=== PATIENT | female | born 1990 | race Two or more races ===

== ENCOUNTER → 2024-03-23 | Outpatient (CLI) | payer MEDICAID ==
[~2024-03-23] MED LIST: PREN-96 PO
[2024-03-23 16:55] LABS: Basophils # (auto) 0 10 ^3/uL (0-0.2); Basophils % (auto) 0.4 % (0.0-2.0); Eosinophils # (auto) 0.1 10 ^3/uL (0-0.8); Eosinophils % (auto) 1.3 % (0.0-7.0); Hematocrit 36.3 % (36.0-46.0); Hemoglobin 12.5 g/dL (12.2-16.2); Lymphocytes # (auto) 2.3 10 ^3/uL (0.4-5.4); Lymphocytes % (auto) 24.3 % (10.0-50.0); Mean Corpuscular Hemoglobin 30.6 pg (28.0-32.0); Mean Corpuscular Hgb Conc. 34.4 g/dL (32.0-36.0); Monocytes # (auto) 0.4 10 ^3/uL (0-1.3); Neutrophils # (auto) 6.7 10 ^3/uL (1.6-8.6); Nucleated Red Blood Cells % 0.1 %; Platelet Count (auto) 292 10^3/uL (140-450); Red Blood Cells 4.08 10^6/uL (4.0-5.20); Red Cell Distribution Width 13.3 % (11.8-14.3); White Blood Cell 9.6 10^3/uL (4.4-10.8)
[2024-03-23 17:17] LABS: Amphetamine Screen, Urine Neg (NEGATIVE); Barbiturate Scree,Urine Neg (NEGATIVE)
[2024-03-23 17:19] LABS: Benzodiazephine Screen, Urine Neg (NEGATIVE); Cannabinoid Screen, Urine Neg (NEGATIVE); Cocaine Screen, Urine Neg (NEGATIVE); Opiate Scree,Urine Neg (NEGATIVE); Phencyclidine Screen, Urine Neg (NEGATIVE)
[2024-03-23 17:20] LABS: Cholesterol 169 mg/dL (< 200); Triglycerides 89 mg/dL (< 150)
[2024-03-23 17:21] LABS: LDL Cholesterol 97 mg/dL (< 100)
[2024-03-23 17:22] LABS: HDL Cholesterol 65 mg/dL (40-59)
[2024-03-23 17:23] LABS: Thyroid Stimulating Hormone 0.59 uIU/mL (0.55-4.78)
[2024-03-23 17:31] LABS: Beta HCG, Quantitative 97637.3 mIU/mL (1.5-4.2)
[2024-03-24 07:06] LABS: RPR Non Reactive (Non Reactive)
[2024-03-24 18:07] LABS: Chlamydia Trachomatis, NAA Negative (Negative); Neisseria gonorrhoeae, NAA Negative (Negative)
[2024-03-25 11:08] LABS: QuantiFERON-TB Gold Plus Negative (Negative)
== END | disposition home or self-care (01) ==
LOC: LAB 16:13
PROVIDERS: ATTEND Obstetrics & Gynecology
DX: Z11.3 Encounter for screening for infections with a predominantly sexual mode of transmission (principal); N39.0 Urinary tract infection, site not specified
CPT/HCPCS: 36415; 80061; 80307; 83036; 84439; 84443; 84702; 85025; 86592; 86703; 86765; 86787; 86850; 86900; 86901; 87086; 87340; 87902

== ENCOUNTER → 2024-08-11 | Outpatient (CLI) | payer MEDICAID ==
[2024-08-11 10:29] LABS: Basophils # (auto) 0 10 ^3/uL (0-0.2); Basophils % (auto) 0.2 % (0.0-2.0); Eosinophils # (auto) 0.1 10 ^3/uL (0-0.8); Eosinophils % (auto) 1.4 % (0.0-7.0); Hematocrit 34.2 % (36.0-46.0); Hemoglobin 11.3 g/dL (12.2-16.2); Lymphocytes % (auto) 12.6 % (10.0-50.0); Mean Corpuscular Hemoglobin 28.7 pg (28.0-32.0); Mean Corpuscular Hgb Conc. 33.2 g/dL (32.0-36.0); Mean Corpuscular Volume 86.3 fL (80.0-100.0); Monocytes # (auto) 0.3 10 ^3/uL (0-1.3); Monocytes % (auto) 4.3 % (0.0-12.0); Neutrophils # (auto) 6.3 10 ^3/uL (1.6-8.6); Neutrophils % (auto) 81.5 % (37.0-80.0); Platelet Count (auto) 265 10^3/uL (140-450); Red Blood Cells 3.96 10^6/uL (4.0-5.20); Red Cell Distribution Width 13.9 % (11.8-14.3); White Blood Cell 7.7 10^3/uL (4.4-10.8)
[2024-08-11 11:04] LABS: Alanine Aminotransferase 10 U/L (7-40); Albumin 4.3 g/dL (3.2-4.8); Alkaline Phosphatase 115 U/L (46-116); Anion Gap 8 (5-15); Aspartate Aminotransferase 13 U/L (13-40); BUN/Creatinine Ratio 11.1 (10.0-20.0); Bilirubin, Total 0.3 mg/dL (0.2-1.0); Calcium 9.8 mg/dL (8.7-10.4); Carbon Dioxide 25 mmol/L (20-31); Chloride 104 mmol/L (98-107); Glucose 88 mg/dL (74-106); Potassium 4.2 mmol/L (3.5-5.1); Sodium 137 mmol/L (136-145); Total Protein 7.3 g/dL (5.7-8.2)
[2024-08-11 11:13] LABS: Blood Urea Nitrogen 6 mg/dL (9-23)
[2024-08-12 07:07] LABS: RPR Non Reactive (Non Reactive)
[2024-08-12 18:06] LABS: Chlamydia Trachomatis, NAA Negative (Negative); Neisseria gonorrhoeae, NAA Negative (Negative)
== END | disposition home or self-care (01) ==
LOC: LAB 10:02
PROVIDERS: ATTEND Obstetrics & Gynecology
DX: Z34.80 Encounter for supervision of other normal pregnancy, unspecified trimester (principal)
CPT/HCPCS: 36415; 80053; 82951; 83036; 85025; 86592; 86850; 86900; 86901

== ENCOUNTER 2024-09-06 08:43 | Observation (INO) | payer MEDICAID ==
--- NOTE | 2024-09-06 09:38 | DVH ---
BIOPHYSICAL PROFILE HISTORY: GDMA1 TECHNIQUE: Multiple transabdominal real-time grayscale sonographic images through the gravid uterus of the fetus with duplex Doppler color flow and M-mode spectral analysis FINDINGS: BIOPHYSICAL PROFILE: breathing score: 2 movement score: 2 tone score: 2 Quantitative LUIS score: 2 (LUIS: 12.8 Cm.) Total score: 8 The cervix not well visualized. Single live fetus in cephalic presentation. heart rate 149 beats per minute. Posterior placenta without previa or abruption IMPRESSION: Biophysical profile score: 8
--- NOTE | 2024-09-06 12:25 | DVHDS2 ---
Physician Discharge Progress N Final Diagnosis: GDMA1 Secondary Diagnosis: Encounter for antepartum surveillance Operations or Procedures: Operations or Procedures NST/BPP/LUIS Condition on Discharge: Stable Disposition: Home Discharge Instructions: Diet: Consistent carbohydrate Activity: No Restrictions, As Tolerated Follow Up/Referral: [facility] on Friday[facility] at 9:00 am for NST/BPP Medications: N/A Follow Up Care: Discharge Statement: "Patient was advised to return to the ER or call 911 if any headaches, dizziness, shortness of breath, chest pain, abdominal pain, bleeding, fevers, or worsening of medical condition. Patient was counseled about treatment plan, medications, possible side effects, patientverbalized understanding. All questions were answered to the best of my ability. This discharge took greater then 30 minutes in planning, reviewing documentation, counseling the patient, and discussing with other team members." Visit Coding OBGYN Date of Service: Sep 06, 2024 Billing Provider: JAMIN ELLER DO VISCOSE CELLAR WORKER Common Visit Codes: 90415-TWP/OBS SAME DATE (HIGH) VISCOSE CELLAR WORKER Procedure Codes: 86424-03- NON-STRESS TEST JAMIN ELLER DO Sep 06, 2024 12:25
== END 2024-09-06 10:10 | disposition home or self-care (01) ==
LOC: LDRP 08:43 → UNDOADMOB 08:43 → LDRP 08:56 → UNDODISOB 10:10
PROVIDERS: ADMIT Obstetrics & Gynecology; ATTEND Obstetrics & Gynecology
DX: O24.419 Gestational diabetes mellitus in pregnancy, unspecified control (principal); Z3A.32 32 weeks gestation of pregnancy
CPT/HCPCS: 59025; 76819; 81002; 82962; 94760; G0378

== ENCOUNTER 2024-09-13 06:30 | Observation (INO) | payer MEDICAID ==
--- NOTE | 2024-09-13 09:48 | DVH ---
BIOPHYSICAL PROFILE HISTORY: gdma1 Comparison Study: 09/06/2024 TECHNIQUE: Multiple real-time grayscale sonographic images through the gravid uterus of the fetus wi th duplex Doppler color flow and M-mode spectral analysis FINDINGS: BIOPHYSICAL PROFILE: breathing score: 2 movement score: 2 tone score: 2 Quantitative LUIS score: 2 (LUIS: 15.3 Cm.) Total score: 8 The cervix is not visualized Single live fetus in breech presentation. heart rate 155 beats per minute. Posterior placenta without previa or abruption IMPRESSION: Biophysical profile score: 8
--- NOTE | 2024-09-13 23:34 | DVHDS2 ---
Discharge Summary Date of Admission Sep 13, 2024 at 09:05 Date of Discharge: Sep 13, 2024 Admitting Diagnosis 33 GDM here for routine monitoring Labs/Diagnostic Data: Laboratory Results Test 09/13/24 09:45 POC Glucose 102 mg/dl (70-106) Brief Hx & Hospital Course: GDM A1 Condition at Discharge: Good Final Diagnosis/Problems List GDM A1 33 weeks Discharge Disposition: Home Discharge Instruct/Medications Diet: Consistent carbohydrate Activity: No Restrictions, As Tolerated Discharge Statement: "Patient was advised to return to the ER or call 911 if any headaches, dizziness, shortness of breath, chest pain, abdominal pain, bleeding, fevers, or worsening of medical condition. Patient was counseled about treatment plan, medications, possible side effects, patientverbalized understanding. All questions were answered to the best of my ability. This discharge took greater then 30 minutes in planning, reviewing documentation, counseling the patient, and discussing with other team members." ASSESSMENT ASSESSMENT Assessment Visit Coding OBGYN Date of Service: Sep 13, 2024 Billing Provider: ADAM SANCHEZ DO GREASE MAN Common Visit Codes: 97583-VME/OBS SAME DATE (LOW), 78357-ETZ/OBS SAME DATE (MOD), 63532-SLO/OBS SAME DATE (HIGH) GREASE MAN Procedure Codes: 58673-19- NON-STRESS TEST ADAM SANCHEZ DO Sep 13, 2024 23:34
== END 2024-09-13 10:11 | disposition home or self-care (01) ==
LOC: LDRP 08:57 → UNDOADMOB 08:57 → LDRP 09:05 → UNDODISOB 10:11
PROVIDERS: ADMIT Obstetrics & Gynecology; ATTEND Obstetrics & Gynecology
DX: O24.419 Gestational diabetes mellitus in pregnancy, unspecified control (principal); Z98.890 Other specified postprocedural states; Z79.899 Other long term (current) drug therapy; Z3A.33 33 weeks gestation of pregnancy
CPT/HCPCS: 59025; 76819; 81002; 82948; 82962; 94760; G0378

== ENCOUNTER 2024-09-20 09:37 | Observation (INO) | payer MEDICAID ==
--- NOTE | 2024-09-20 10:50 | DVH ---
BIOPHYSICAL PROFILE HISTORY: GDMA1 TECHNIQUE: Multiple transabdominal real-time grayscale sonographic images through the gravid uterus of the fetus with duplex Doppler color flow and M-mode spectral analysis FINDINGS: BIOPHYSICAL PROFILE: breathing score: 2 movement score: 2 tone score: 2 Quantitative LUIS score: 2 (LUIS: 12 Cm.) Total score: 8 CEPHALIC POSITION. POSTERIOR GRADE 1 PLACENTA. IMPRESSION: Biophysical profile score: 8/8
--- NOTE | 2024-09-21 15:31 | DVHDS2 ---
Physician Discharge Progress N Final Diagnosis: gdm 34wks Operations or Procedures: Operations or Procedures nst,sono Condition on Discharge: Good Disposition: Home Discharge Instructions: Diet: Consistent carbohydrate Activity: No Restrictions, As Tolerated Medications: na Follow Up Care: Specialist: 3d Discharge Statement: "Patient was advised to return to the ER or call 911 if any headaches, dizziness, shortness of breath, chest pain, abdominal pain, bleeding, fevers, or worsening of medical condition. Patient was counseled about treatment plan, medications, possible side effects, patientverbalized understanding. All questions were answered to the best of my ability. This discharge took greater then 30 minutes in planning, reviewing documentati on, counseling the patient, and discussing with other team members." Visit Coding OBGYN Date of Service: Sep 20, 2024 Billing Provider: CHELSEA REESE DO CORK PAINTER AND GRADER Common Visit Codes: 52700-VMZXARI INP/OBS CARE (HIGH) CORK PAINTER AND GRADER Procedure Codes: 16459-23- NON-STRESS TEST CHELSEA REESE DO Sep 21, 2024 15:31
== END 2024-09-20 10:31 | disposition home or self-care (01) ==
LOC: LDRP 09:37 → UNDOADMOB 09:37 → LDRP 09:44 → UNDODISOB 10:31
PROVIDERS: ADMIT Obstetrics & Gynecology; ATTEND Obstetrics & Gynecology
DX: O24.419 Gestational diabetes mellitus in pregnancy, unspecified control (principal); Z98.890 Other specified postprocedural states; Z79.899 Other long term (current) drug therapy; Z3A.34 34 weeks gestation of pregnancy
CPT/HCPCS: 76818; 81002; 82948; 82962; 94760; G0378; 76819

== ENCOUNTER 2024-09-27 06:15 | Observation (INO) | payer MEDICAID ==
--- NOTE | 2024-09-27 09:53 | DVH ---
Procedure: US BIOPHYSICAL PROFILE 09/27/2024 09:28 AM Indication: gdma1 Comparison: US BIOPHYSICAL PROFILE on DOS: 09/20/24, US BIOPHYSICAL PROFILE on DOS: 09/13/24, US BIOPHY SICAL PROFILE on DOS: 09/06/24 Technique: Sonogram of gravid uterus utilizing grayscale and color techniques. FINDINGS: Single living intrauterine gestation. Presentation: Cephalic Placenta: Posterior heart rate: 138 bpm LUIS: 13 cm, DVP: 0.9 cm Maternal cervix: Not visualized Biophysical Profile: breathing score: 2 movement score: 2 tone: 2 Quantitative LUIS score: 2 Total score: 8/8 IMPRESSION: 1. Single living as above. 2. Biophysical profile score: 8/8.
--- NOTE | 2024-09-28 12:37 | DVHDS2 ---
Physician Discharge Progress N Final Diagnosis: 35wks gdm Operations or Procedures: Operations or Procedures nst ,sono Condition on Discharge: Good Disposition: Home Discharge Instructions: Diet: Regular, Consistent carbohydrate Activity: Light activity Medications: na Follow Up Care: Specialist: 4d Discharge Statement: "Patient was advised to return to the ER or call 911 if any headaches, dizziness, shortness of breath, chest pain, abdominal pain, bleeding, fevers, or worsening of medical condition. Patient was counseled about treatment plan, medications, possible side effects, patientverbalized understanding. All questions were answered to the best of my ability. This discharge took greater then 30 minutes in planning, reviewing documentation, counseling the patient, and discussing with other team members." Visit Coding OBGYN Date of Service: Sep 27, 2024 Billing Provider: CHELSEA REESE DO PRODUCT SUPPORT SPECIALIST Common Visit Codes: 68529-BLJNJBY OBS CARE (HIGH) PRODUCT SUPPORT SPECIALIST Procedure Codes: 91086-54- NON-STRESS TEST CHELSEA REESE DO Sep 28, 2024 12:37
== END 2024-09-27 10:15 | disposition home or self-care (01) ==
LOC: LDRP 08:58 → UNDOADMOB 08:58 → LDRP 09:11
PROVIDERS: ADMIT Obstetrics & Gynecology; ATTEND Obstetrics & Gynecology
DX: O24.419 Gestational diabetes mellitus in pregnancy, unspecified control (principal); Z98.890 Other specified postprocedural states; Z79.899 Other long term (current) drug therapy; Z3A.35 35 weeks gestation of pregnancy
CPT/HCPCS: 76819; 81002; 82948; 94760; G0378

== ENCOUNTER 2024-10-04 06:06 | Observation (INO) | payer MEDICAID ==
--- NOTE | 2024-10-04 10:02 | DVH ---
Procedure: US BIOPHYSICAL PROFILE 10/04/2024 09:31 AM Indication: GDMA1 Comparison: US BIOPHYSICAL PROFILE on DOS: 09/27/24, US BIOPHYSICAL PROFILE on DOS: 09/20/24, US BIOPHYS ICAL PROFILE on DOS: 09/13/24 Technique: Sonogram of gravid uterus utilizing grayscale and color techniques. FINDINGS: Single living intrauterine gestation. Presentation: Cephalic Placenta: Posterior heart rate: 155 bpm LUIS: 15.4 cm, DVP: 4.5 cm Maternal cervix: Not visualized Biophysical Profile: breathing score: 2 movement score: 2 tone: 2 Quantitative LUIS score: 2 Total score: 8/8 IMPRESSION: 1. Single living as above. 2. Biophysical profile score: 8/8.
--- NOTE | 2024-10-04 22:48 | DVHDS2 ---
Discharge Summary Date of Admission Oct 04, 2024 at 09:17 Date of Discharge: Oct 04, 2024 Admitting Diagnosis 36 weeks GDMA1 Labs/Diagnostic Data: Laboratory Results Test 10/04/24 09:58 POC Glucose 90 mg/dl (70-106) Brief Hx & Hospital Course: reassuring heart tones Condition at Discharge: Good Final Diagnosis/Problems List GDM A1 36 wks Discharge Disposition: Home Discharge Instruct/Medications Diet: Consistent carbohydrate Activity: No Restrictions, As Tolerated Follow Up/Referral: as scheduled Discharge Statement: "Patient was advised to return to the ER or call 911 if any headaches, dizziness, shortness of breath, chest pain, abdominal pain, bleeding, fevers, or worsening of medical condition. Patient was counseled about treatment plan, medications, possible side effects, patientverbalized understanding. All questions were answered to the best of my ability. This discharge took greater then 30 minutes in planning, reviewing documentation, counseling the patient, and discussing with other team members." ASSESSMENT ASSESSMENT Assessment Visit Coding OBGYN Date of Service: Oct 04, 2024 Billing Provider: ADAM SANCHEZ DO FORKLIFT OPERATOR Common Visit Codes: 68031-RAQ/OBS SAME DATE (LOW), 47821-WKO/OBS SAME DATE (MOD), 25733-VWJ/OBS SAME DATE (HIGH) FORKLIFT OPERATOR Procedure Codes: 89331-84- NON-STRESS TEST ADAM SANCHEZ DO Oct 04, 2024 22:48
== END 2024-10-04 10:18 | disposition home or self-care (01) ==
LOC: LDRP 09:03 → UNDOADMOB 09:03 → LDRP 09:17 → UNDODISOB 10:18
PROVIDERS: ADMIT Obstetrics & Gynecology; ATTEND Obstetrics & Gynecology
DX: O24.419 Gestational diabetes mellitus in pregnancy, unspecified control (principal); Z79.899 Other long term (current) drug therapy; Z3A.36 36 weeks gestation of pregnancy
CPT/HCPCS: 59025; 76819; 81002; 82948; 82962; 94760; G0378

== ENCOUNTER 2024-10-11 09:14 | Observation (INO) | payer MEDICAID ==
--- NOTE | 2024-10-11 10:12 | DVH ---
BIOPHYSICAL PROFILE HISTORY: GDMA1 Comparison Study: None TECHNIQUE: Multiple real-time grayscale sonographic images through the gravid uterus of the fetus wi th duplex Doppler color flow and M-mode spectral analysis FINDINGS: BIOPHYSICAL PROFILE: breathing score: 2 movement score: 2 tone score: 2 Quantitative LUIS score: 2 (LUIS: 11.6 Cm.) Total score: 8 The cervix is not visualized Single live fetus in cephalic presentation. heart rate 130 beats per minute. Grade 2, posterior placenta without previa or abruption IMPRESSION: Biophysical profile score: 8
--- NOTE | 2024-10-11 11:26 | DVHDS2 ---
Physician Discharge Progress N Final Diagnosis: gdm 37wks Operations or Procedures: Operations or Procedures nst,sono Condition on Discharge: Good Disposition: Home Discharge Instructions: Diet: Regular, Consistent carbohydrate Activity: No Restrictions, As Tolerated Follow Up/Referral: [facility] on Wednesday 10/18 at 10:00 am for NST Medications: na Follow Up Care: Specialist: 4d Discharge Statement: "Patient was advised to return to the ER or call 911 if any headaches, dizziness, shortness of breath, chest pain, abdominal pain, bleeding, fevers, or worsening of medical condition. Patient was counseled about treatment plan, medications, possible side effects, patient�verbalized understanding. All questions were answered to the best of my ability. This discharge took greater then 30 minutes in planning, reviewing documentation, counseling the patient, and discussing with other team members." Visit Coding OBGYN Date of Service: Oct 11, 2024 Billing Provider: CHELSEA REESE DO OPERATING ROOM RN Common Visit Codes: 72525-IEFUWLH OBS CARE (HIGH) OPERATING ROOM RN Procedure Codes: 01045-80- NON-STRESS TEST CHELSEA REESE DO Oct 11, 2024 11:26
== END 2024-10-11 10:37 | disposition home or self-care (01) ==
LOC: LDRP 09:14
PROVIDERS: ADMIT Obstetrics & Gynecology; ATTEND Obstetrics & Gynecology
DX: O24.419 Gestational diabetes mellitus in pregnancy, unspecified control (principal); Z98.890 Other specified postprocedural states; Z79.899 Other long term (current) drug therapy; Z3A.37 37 weeks gestation of pregnancy
CPT/HCPCS: 59025; 76819; 81002; 82948; 82962; 94760; G0378

== ENCOUNTER 2024-10-18 06:40 | Observation (INO) | payer MEDICAID ==
--- NOTE | 2024-10-18 11:34 | DVH ---
BIOPHYSICAL PROFILE HISTORY: gdma1 TECHNIQUE: Multiple transabdominal real-time grayscale sonographic images through the gravid uterus of the fetus with duplex Doppler color flow and M-mode spectral analysis FINDINGS: BIOPHYSICAL PROFILE: breathing score: 2 movement score: 2 tone score: 2 Quantitative LUIS score: 2 (LUIS: 12. Cm.) Total score: 8 The cervix was not seen Single live fetus in cephalic presentation. heart rate 131 beats per minute. Grade II posterior placenta without previa or abruption IMPRESSION: Biophysical profile score: 8/8
--- NOTE | 2024-10-18 23:10 | DVHDS2 ---
Discharge Summary Date of Admission Oct 18, 2024 at 10:32 Date of Discharge: Oct 18, 2024 Admitting Diagnosis Thirty-eight weeks GDM A1 Labs/Diagnostic Data: Laboratory Results Test 10/18/24 11:15 POC Glucose 86 mg/dl (70-106) Brief Hx & Hospital Course: NST ultrasound Consults/Reason for consult Same Operations or Procedures None Condition at Discharge: Good Final Diagnosis/Problems List Same Discharge Disposition: Home Discharge Instruct/Medications Diet: Consistent carbohydrate Activity: No Restrictions, As Tolerated Discharge Statement: "Patient was advised to return to the ER or call 911 if any headaches, dizziness, shortness of breath, chest pain, abdominal pain, bleeding, fevers, or worsening of medical condition. Patient was counseled about treatment plan, medications, possible side effects, patientverbalized understanding. All questions were answered to the best of my ability. This discharge took greater then 30 minutes in planning, reviewing documentation, counseling the patient, and discussing with other team members." DME: Diagnosis: GDM a 130 weeks ASSESSMENT ASSESSMENT Assessment Visit Coding OBGYN Date of Service: Oct 18, 2024 Billing Provider: ADAM SANCHEZ DO CHURN OPERATOR MARGARINE Common Visit Codes: 58941-PHM/OBS SAME DATE (LOW), 03674-XCP/OBS SAME DATE (MOD), 93684-WAS/OBS SAME DATE (HIGH) CHURN OPERATOR MARGARINE Procedure Codes: 26421-09- NON-STRESS TEST ADAM SANCHEZ DO Oct 18, 2024 23:10
== END 2024-10-18 11:33 | disposition home or self-care (01) ==
LOC: UNDOADMOB 10:23 → LDRP 10:23 → UNDODISOB 11:33
PROVIDERS: ADMIT Obstetrics & Gynecology; ATTEND Obstetrics & Gynecology
DX: O24.419 Gestational diabetes mellitus in pregnancy, unspecified control (principal); Z98.890 Other specified postprocedural states; Z79.899 Other long term (current) drug therapy; Z3A.38 38 weeks gestation of pregnancy
CPT/HCPCS: 59025; 76819; 81002; 82948; 82962; G0378

== ENCOUNTER 2024-10-20 16:50 | Observation (INO) | payer MEDICAID ==
--- NOTE | 2024-10-20 18:22 | DVH ---
Procedure: US BIOPHYSICAL PROFILE 10/20/2024 05:39 PM Indication: Vaginal bleeding Comparison: US BIOPHYSICAL PROFILE on DOS: 10/18/24, US BIOPHYSICAL PROFILE on DOS: 10/11/24, US BIOPHY SICAL PROFILE on DOS: 10/04/24 Technique: Sonogram of gravid uterus utilizing grayscale and color techniques. FINDINGS: Single living intrauterine gestation. Presentation: Cephalic Placenta: Fundal heart rate: 149 bpm LUIS: 10.2 cm, DVP: 4.5 cm Maternal cervix: Not visualized Biophysical Profile: breathing score: 2 movement score: 2 tone: 2 Quantitative LUIS score: 2 Total score: 8/8 IMPRESSION: 1. Single living as above. 2. Biophysical profile score: 8/8.
--- NOTE | 2024-10-20 18:41 | DVHDS2 ---
Physician Discharge Progress N Final Diagnosis: 34yo IUP @ 38.3 weeks wellbeing established Normal bloody show Operations or Procedures: Operations or Procedures S: 34yo IUP @ 38.3 weeks came in to OB triage for DFM and bloody mucus after CARY visit with Dr. Kidd and VE 2cm dilated. Pt denies UCs/LOF/JANSEN/visual changes/RUQ pain. Pt reports her blood sugars have been within range and denies any other complications during her . O: VSS BPP: 01/28 UA wnl NST reactive x2 SVE: declined by patient A: 34yo IUP @ 38.3 weeks Normal bloody show wellbeing established GDMA1 P: D/C home IOL scheduled on 10/24/2024 at 7am Labor precautions and FKC instructed given and reviewed. Dr. Kidd consulted and agrees with POC Other Interventions Other Interventions [place] [address] Ph: [phone] DIAGNOSTIC IMAGING Diagnostic Imaging Report : [id number] Signed PATIENT: TYLER JASMINE ACCT: [id number] UNIT: [id number] : 1990 LOC: [facility] ROOM / BED: TRIAGE1 / A AGE / SEX: 34 / F ADM STATUS: ADM IN SERVICE 1740 ORDERING PHYSICIAN: JORGE LUIS ALEXANDRA CNM PROCEDURE(s): BPP - BIOPHYSICAL PROFILE REASON: Vaginal bleeding ORDER NUMBER(s): [id number], ACCESSION NUMBER(s): [id number] Procedure: US BIOPHYSICAL PROFILE 10/20/2024 05:39 PM Indication: Vaginal bleeding Comparison: US BIOPHYSICAL PROFILE on DOS: 10/18/24, US BIOPHYSICAL PROFILE on DOS: 10/11/24, US BIOPHYSICAL PROFILE on DOS: 10/04/24 Technique: Sonogram of gravid uterus utilizing grayscale and color techniques. FINDINGS: Single living intrauterine gestation. Presentation: Cephalic Placenta: Fundal heart rate: 149 bpm LUIS: 10.2 cm, DVP: 4.5 cm Maternal cervix: Not visualized Biophysical Profile: breathing score: 2 movement score: 2 tone: 2 Quantitative LUIS score: 2 Total score: 8/8 IMPRESSION: 1. Single living as above. 2. Biophysical profile score: 8/8. ATED BY: KYM NGUYEN MD DICTATED DATE/TIME: 10/20/241819 SIGNED BY: KYM NGUYEN MD SIGNED DATE/TIME: 10/20/241819 CC: Condition on Discharge: Stable Disposition: Home Discharge Instructions: Diet: Consistent carbohydrate Activity: No Restrictions, As Tolerated Medications: see med list Follow Up Care: Specialist: F/u 10/24/2024 for scheduled IOL Discharge Statement: "Patient was advised to return to the ER or call 911 if any headaches, dizziness, shortness of breath, chest pain, abdominal pain, bleeding, fevers, or worsening of medical condition. Patient was counseled about treatment plan, medications, possible side effects, patientverbalized understanding. All questions were answered to the best of my ability. This discharge took greater then 30 minutes in planning, reviewing documentation, counseling the patient, and discussing with other team members." Visit Coding OBGYN Date of Service: Oct 20, 2024 Billing Provider: JORGE LUIS ALEXANDRA CNM SEO ASSISTANT Common Visit Codes: 06447-SOAUNJE OBS CARE (HIGH) SEO ASSISTANT Procedure Codes: 71519-44- NON-STRESS TEST ILAN BARROW Oct 20, 2024 18:41
== END 2024-10-20 18:37 | disposition home or self-care (01) ==
LOC: LDRP 16:50
PROVIDERS: ADMIT Obstetrics & Gynecology; ATTEND Obstetrics & Gynecology
DX: O24.419 Gestational diabetes mellitus in pregnancy, unspecified control (principal); O36.8130 Decreased fetal movements, third trimester, not applicable or unspecified; Z3A.38 38 weeks gestation of pregnancy; Z79.899 Other long term (current) drug therapy
CPT/HCPCS: 59025; 76819; 81002; 94760; G0378

== ENCOUNTER 2024-10-24 07:00 | Inpatient (IN) | payer MEDICAID ==
[~2024-10-24] VITALS: Ht 167.6 cm; Wt 79.4 kg
[2024-10-24] MEDS ORDERED: LIDOCAINE 2%HCL (LOCAL ANESTH.) INJ 20ML MDV IJ PRN (07:15)
[2024-10-24] MEDS ORDERED: miSOPROStol 50 MCG per PRE-CUT 1/2 TAB PO PRN (07:15)
[2024-10-24] MEDS ORDERED: LACTATED RINGER'S 1,000 ML IV SCH (07:15)
[2024-10-24] MEDS ORDERED: PHISODERM TOP SOLN 240ML BTL TOP PRN (07:15)
[2024-10-24] MEDS ORDERED: BUTORPHANOL TARTRATE 2 MG/1 ML VIAL IV PRN ×2 (07:15)
[2024-10-24 07:40] LABS: Basophils # (auto) 0 10 ^3/uL (0-0.2); Basophils % (auto) 0.3 % (0.0-2.0); Eosinophils # (auto) 0.2 10 ^3/uL (0-0.8); Eosinophils % (auto) 1.5 % (0.0-7.0); Hematocrit 34.9 % (36.0-46.0); Hemoglobin 11.7 g/dL (12.2-16.2); Lymphocytes % (auto) 19.1 % (10.0-50.0); Mean Corpuscular Hemoglobin 28.2 pg (28.0-32.0); Mean Corpuscular Hgb Conc. 33.5 g/dL (32.0-36.0); Mean Corpuscular Volume 84.3 fL (80.0-100.0); Monocytes # (auto) 0.3 10 ^3/uL (0-1.3); Monocytes % (auto) 3.2 % (0.0-12.0); Neutrophils % (auto) 75.9 % (37.0-80.0); Platelet Count (auto) 284 10^3/uL (140-450); Red Blood Cells 4.14 10^6/uL (4.0-5.20); White Blood Cell 10.6 10^3/uL (4.4-10.8)
[2024-10-24 07:51] LABS: Urine Bacteria FEW /hpf (None Seen); Urine Blood 2+ /uL (Negative); Urine Mucus FEW (None Seen); Urine Protein, UAD Negative (Negative); Urine Specific Gravity 1.015 (1.001-1.035); Urine Squamous Epithelial Cell MANY /hpf (<5); Urine Urobilinogen Normal (Negative); Urine WBC 14 /HPF (0-5)
[2024-10-24 07:52] LABS: Urine Clarity Hazy (Clear); Urine Color Light-Yellow (Yellow)
[2024-10-24 07:55] LABS: Alanine Aminotransferase 17 U/L (7-40); Anion Gap 10 (5-15); Aspartate Aminotransferase 18 U/L (13-40); BUN/Creatinine Ratio 14.6 (10.0-20.0); Calcium 9.6 mg/dL (8.7-10.4); Carbon Dioxide 22 mmol/L (20-31); Chloride 106 mmol/L (98-107); Glucose 86 mg/dL (74-106); INR 0.92 (0.9-1.15); Partial Thromboplastin Time 25.2 SEC (24.5-34.5); Prothrombin Time 9.8 sec (9.3-11.8); Sodium 138 mmol/L (136-145); Total Protein 7.2 g/dL (5.7-8.2)
[2024-10-24 07:58] LABS: Alkaline Phosphatase 193 U/L (46-116); Bilirubin, Total 0.3 mg/dL (0.2-1.0); Blood Urea Nitrogen 7 mg/dL (9-23)
[2024-10-24 07:58] LABS: Amphetamine Screen, Urine Neg (NEGATIVE); Barbiturate Scree,Urine Neg (NEGATIVE); Benzodiazephine Screen, Urine Neg (NEGATIVE); Cannabinoid Screen, Urine Neg (NEGATIVE); Cocaine Screen, Urine Neg (NEGATIVE); Opiate Scree,Urine Neg (NEGATIVE); Phencyclidine Screen, Urine Neg (NEGATIVE)
[2024-10-24] MEDS ORDERED: NALOXONE HCL 0.4 MG/ML VIAL IV ONE (09:00)
[2024-10-24] MEDS ORDERED: ePHEDrine SULFATE 50 MG/ML AMP ONE (09:11)
--- NOTE | 2024-10-24 09:12 | DVHHP2 ---
OB CC & HPI Date Date of Admission: October 24, 2024 Patient Identification: : 4 Para: 2 EDC: October 31, 2024 Chief Complaints: Reason for admission: induction of labor Indication for induction: history of rapid labor Other reason for admission: induction Admission Nurse Assessment Rev: Yes Past Medical History Cardiac: No pertinent Hx Pulmonary: No pertinent Hx Central Nervous System: No pertinent Hx GI: No pertinent Hx Hemotology/Oncology: No pertinent Hx Hepatobiliary: No pertinent Hx Psychiatric: No pertinent Hx Musculoskeletal: No pertinent Hx Rheumotologic: No pertinent Hx Infectious Disease: No peritnent Hx ENT: No pertinent Hx Renal/: No pertinent Hx Endocrine: No pertinent Hx Dermatology: No pertinent Hx Past Surgical History: No pertinent Hx OB History OB History Care: Good Care Ultrasounds: Normal mid trimester US Obstetrical Complications: None Medical Complications: None Allergies: Coded Allergies: NO KNOWN ALLERGIES (Unverified , 06/03/12) Home Meds Reported Medications Vit W/ Ferrous Fumara ( One Daily) Daily Tab, 1 TAB PO DAILY, #90 TAB 3 Refills 09/18/14 Current Medications Current Medications Medications (Trade) Dose Ordered Sig/Nathalia Route PRN Reason Start Time Stop Time Status Last Admin Lactated Ringer's 1,000 ml @ 125 mls/hr Q8H IV 10/24/24 07:15 Witch Edelmira (Tucks) 1 pad PRN PRN TOP PERINEAL AREA DISCOMFORT 10/24/24 07:15 Sodium Lauryl Sulfate (Phisoderm) 240 ml PRN PRN TOP PERINEAL AREA DISCOMFORT 10/24/24 07:15 Benzocaine (Dermoplast) 1 applic PRN PRN TOP PERINEAL AREA DISCOMFORT 10/24/24 07:15 Butorphanol Tartrate (Stadol Injection) 1 mg Q4HPRN PRN IV MODERATE PAIN (4-6 PAIN SCALE) 10/24/24 07:15 Butorphanol Tartrate (Stadol Injection) 2 mg Q4HPRN PRN IV SEVERE PAIN (7-10 PAIN SCALE) 10/24/24 07:15 Misoprostol (Cytotec) 50 mcg Q4HPRN PRN PO CERVICAL RIPENING 10/24/24 07:15 Lidocaine HCl (Xylocaine) 20 ml ONCE PRN IJ PERINEAL AREA DISCOMFORT 10/24/24 07:15 Family & Social History Family/Social History Blood Type: A+ Rubella: immune RPR/VDRL: Negative GBS Status: Negative HBsAG: Negative Review of Systems Constitutional: No symptom reported Ears, Nose, & Throat: No symptom reported Eyes: No symptom reported Pulmonary/Respiratory: No symptom reported Cardiovascular: No symptom reported Gastrointestinal: No symptom reported Genitourinary: No symptom reported Musculoskeletal: No symptom reported Skin: No symptom reported Psychiatric: No symptom reported Endocrine: No symptom reported Hemotologic/Lymphatic: No symptom reported OB Admission Exam Physical Exam Heart: Rhythm Normal Lungs: Clear Abdomen: Gravid Extremities: Normal Reflexes: Normal Cervical Dilatation: 4cm Effacement: 75% Station: -2 Membranes: Intact Heart Rate: 140's Accelerations: Accelerations Present Short Term Variability: Present Halfway Variability: Average (6-25) Contractions on Admission: None Intensity: Mild OB Plan Plan Admitting Diagnosis: For induction of labor Plan: Induction Induction Methd: Pitocin protocol ADAM SANCHEZ DO October 24, 2024 09:12
[2024-10-24] MEDS ORDERED: TERBUTALINE SULFATE 1 MG/ML 1ML VIAL SC PRN (09:30)
[2024-10-24] MEDS: LACT. RINGERS/OXYTOCIN 20UNITS 1,000 ML IV SCH (10:00)
[2024-10-24] MEDS: ePHEDrine SULFATE 50 MG/ML AMP IV ONE (11:52)
[2024-10-24] MEDS: ROPIVACAINE HCL 200 ML ONE (11:55)
[2024-10-24] MEDS: LACTATED RINGER'S 500 ML IV ONE (11:58)
[2024-10-24] MEDS: LACTATED RINGER'S 1,000 ML IV SCH (11:59)
[2024-10-24] MEDS: DERMOPLAST 60ML BOTTLE TOP PRN (11:59)
[2024-10-24] MEDS: WITCH HAZEL-GLYCERIN PAD TOP PRN (12:00)
--- NOTE | 2024-10-24 16:30 | LDN2 ---
Labor and Delivery Note Date 10/24/24 Age 34 4 Para 3 AB SAB: 1 EDC 10/31/2024 EGA 39.0 weeks Diagnosis IOL then Vaginal Delivery: VTX Vacuum Assisted: No Placenta: Spontaneous Sex: Female Weight 3255 grams Apgars 8/9 Nuchal Cord Transected: No Amniotic Fluid: Clear Anesthesia Epidural Episiotomy: No Extension: No Repaired with 3-0 Chromic suture EBL QBL: 125 mL Labs Laboratory Tests 10/24/24 07:30: Hepatitis B Surface Antigen Negative 03/23/24 16:40: HIV (1&2) Antibody Negative 05/16/14 09:23: Rubella Antibody Positive Blood Bank 10/24/24 07:30: Blood Type A POSITIVE Complications n/a Conditions Stable Laborer Livestock Dr. Bhardwaj Comments/Significant Med Jennifer At 1455 this 34yo now delivered a viable Female by w/ APGARS 8/9. TRINIDAD. placed skin to skin on pts chest. Cord clamped and cut after 2 minutes. Cord blood sent. Intact 3-vessel cord placenta delivered spontaneously, Ana. Pitocin IV bolus started. Placenta sent to pathology. Patient had epidural anesthesia. Cervix/vagina inspected (intact) and right periurethral laceration present which was repaired with 3-0 chromic suture. Fundus at U, firm, midline, and light lochia. QBL 125 ml. VSS. Count correct x2. Patient to care and baby to couplet care, both stable. Visit Coding OBGYN Date of Service: October 24, 2024 Billing Provider: ADAM SANCHEZ DO SUPERVISOR SANDBLASTER Common Visit Codes: PROCEDURE ONLY SUPERVISOR SANDBLASTER Procedure Codes: 55074-YAA DEL INCLUDING ILAN BARROW STDYun MDWF October 24, 2024 16:30
[2024-10-24 17:45] VITALS: RESP 18
[2024-10-24] MEDS: LACT. RINGERS/OXYTOCIN 20UNITS 500 ML IV ONE ×2 (18:27→18:28)
[2024-10-24 19:00] VITALS: BP 114/58; PULSE 100; RESP 16; TEMP 97.9; O2SAT 95
[2024-10-24] MEDS ORDERED: ONDANSETRON ODT 4 MG TAB PO PRN (20:00)
[2024-10-24] MEDS: DOCUSATE SOD 100 MG CAP PO SCH (22:00)
[2024-10-24 23:00] VITALS: BP 101/56; PULSE 72; RESP 18; TEMP 98.1; O2SAT 98
[2024-10-25] MEDS: ACETAMINOPHEN 325 MG TAB PO PRN (01:13)
[2024-10-25] MEDS: IBUPROFEN 600 MG TAB PO PRN (02:50)
[2024-10-25 03:00] VITALS: BP 95/50; PULSE 86; RESP 15; TEMP 98.1; O2SAT 96
--- NOTE | 2024-10-25 05:49 | DVHPN2 ---
Chief Complaints Patient reports: No new complaints, Feels better Nursing reports: No new complaints, No abdominal pain, No chest pain, No dizziness, No cough Objective Vitals Vital Signs Date Time Temp Pulse Resp B/P (MAP) Pulse Ox O2 Delivery O2 Flow Rate FiO2 10/25/24 03:00 98.1 86 15 95/50 (65) 96 98.1 10/24/24 19:00 Room Air Medications Current Medications Medications (Trade) Dose Ordered Sig/Nathalia Route PRN Reason Start Time Stop Time Status Last Admin Acetaminophen (Tylenol Tablet) 650 mg Q4HP PRN PO MILD PAIN (1-3 PAIN SCALE) 10/24/24 20:00 10/25/24 01:13 Butorphanol Tartrate (Stadol Injection) 1 mg Q4HPRN PRN IV MODERATE PAIN (4-6 PAIN SCALE) 10/24/24 07:15 Cancel Butorphanol Tartrate (Stadol Injection) 2 mg Q4HPRN PRN IV SEVERE PAIN (7-10 PAIN SCALE) 10/24/24 07:15 Cancel Docusate Sodium (Colace Capsule) 200 mg HS PO 10/24/24 22:00 Ibuprofen (Motrin Tablet) 600 mg Q6HP PRN PO MODERATE PAIN (4-6 PAIN SCALE) 10/24/24 20:00 10/25/24 02:50 Lactated Ringer's 1,000 ml @ 125 mls/hr Q8H IV 10/24/24 09:30 10/24/24 14:21 Lidocaine HCl (Xylocaine) 20 ml ONCE PRN IJ PERINEAL AREA DISCOMFORT 10/24/24 07:15 Cancel Misoprostol (Cytotec) 50 mcg Q4HPRN PRN PO CERVICAL RIPENING 10/24/24 07:15 Cancel Ondansetron HCl (Zofran Po) 4 mg Q4HPRN PRN PO NAUSEA / VOMITING 10/24/24 20:00 Sodium Lauryl Sulfate (Phisoderm) 240 ml PRN PRN TOP PERINEAL AREA DISCOMFORT 10/24/24 07:15 Terbutaline Sulfate (Brethine Inj) 0.25 mg ONCE PRN SC Uterine tachysystole 10/24/24 09:30 Cancel Witch Edelmira (Tucks) 1 pad PRN PRN TOP PERINEAL AREA DISCOMFORT 10/24/24 07:15 10/24/24 12:00 General: Normal Neck: Normal Lungs: Normal Cardiovascular: Normal Abdominal: Normal (uterus 12 weeks nl) Musculoskeletal: Normal Extremities: Normal Skin: Normal Studies Laboratory Tests 10/24/24 07:30 Test 10/24/24 07:30 Range/Units Serum Glucose 86 74-106 mg/dL Ass/Plan Assessment ppd #1 stable improved Plan Advance care ADAM SANCHEZ DO October 25, 2024 05:49
[2024-10-25 07:00] VITALS: BP 96/55; PULSE 68; RESP 16; TEMP 98.3; O2SAT 98
[2024-10-25 11:00] VITALS: BP 102/55; PULSE 89; RESP 18; TEMP 98.3; O2SAT 97
[2024-10-25 14:48] VITALS: BP 99/55; PULSE 78; RESP 18; TEMP 98.1; O2SAT 95
--- NOTE | 2024-10-25 17:24 | DVHDS2 ---
Discharge Summary Date of Admission October 24, 2024 at 07:00 Date of Discharge: October 25, 2024 Admitting Diagnosis induction Wounds: 1st degree vag tear Labs/Diagnostic Data: Laboratory Results Test 10/24/24 16:20 10/24/24 07:30 10/24/24 07:15 POC Glucose 81 mg/dl (70-106) White Blood Count 10.6 10^3/uL (4.4-10.8) Red Blood Count 4.14 10^6/uL (4.0-5.20) Hemoglobin 11.7 g/dL (12.2-16.2) Hematocrit 34.9 % (36.0-46.0) Mean Corpuscular Volume 84.3 fL (80.0-100.0) Mean Corpuscular Hemoglobin 28.2 pg (28.0-32.0) Mean Corpuscular Hemoglobin Concent 33.5 g/dL (32.0-36.0) Red Cell Distribution Width 15.0 % (11.8-14.3) Platelet Count 284 10^3/uL (140-450) Mean Platelet Volume 7.1 fL (6.9-10.8) Neutrophils (%) (Auto) 75.9 % (37.0-80.0) Lymphocytes (%) (Auto) 19.1 % (10.0-50.0) Monocytes (%) (Auto) 3.2 % (0.0-12.0) Eosinophils (%) (Auto) 1.5 % (0.0-7.0) Basophils (%) (Auto) 0.3 % (0.0-2.0) Neutrophils # (Auto) 8.0 10 ^3/uL (1.6-8.6) Lymphocytes # (Auto) 2.0 10 ^3/uL (0.4-5.4) Monocytes # (Auto) 0.3 10 ^3/uL (0-1.3) Eosinophils # (Auto) 0.2 10 ^3/uL (0-0.8) Basophils # (Auto) 0 10 ^3/uL (0-0.2) Nucleated Red Blood Cells 0.0 % Prothrombin Time 9.8 sec (9.3-11.8) Prothrombin Time INR 0.92 (0.9-1.15) Activated Partial Thromboplast Time 25.2 SEC (24.5-34.5) Sodium Level 138 mmol/L (136-145) Potassium Level 4.0 mmol/L (3.5-5.1) Chloride Level 106 mmol/L (98-107) Carbon Dioxide Level 22 mmol/L (20-31) Anion Gap 10 (5-15) Blood Urea Nitrogen 7 mg/dL (9-23) Creatinine 0.48 mg/dL (0.550-1.02) Glomerular Filtration Rate Calc 129 mL/min (>90) BUN/Creatinine Ratio 14.6 (10.0-20.0) Serum Glucose 86 mg/dL (74-106) Calcium Level 9.6 mg/dL (8.7-10.4) Total Bilirubin 0.3 mg/dL (0.2-1.0) Aspartate Amino Transferase (AST) 18 U/L (13-40) Alanine Aminotransferase (ALT) 17 U/L (7-40) Alkaline Phosphatase 193 U/L (46-116) Total Protein 7.2 g/dL (5.7-8.2) Albumin 4.0 g/dL (3.2-4.8) Treponema pallidum Antibody Non-reactive (Negative) Hepatitis B Surface Antigen Negative (Negative) Hepatitis C Antibody Negative (Negative) Urine Color Light-yellow (Yellow) Urine Clarity Hazy (Clear) Urine pH 6.0 (5.0-9.0) Urine Specific [place] 1.015 (1.001-1.035) Urine Protein Negative (Negative) Urine Ketones Negative (Negative) Urine Blood 2+ /uL (Negative) Urine Nitrite Negative (Negative) Urine Bilirubin Negative (Negative) Urine Urobilinogen Normal mg/dL (Negative) Urine Leukocyte Esterase 2+ /uL (Negative) Urine RBC 4 /hpf (0 - 4) Urine Microscopic WBC 14 /HPF (0-5) Urine Squamous Epithelial Cells Many /hpf (<5) Urine Bacteria Few /hpf (None Seen) Urine Mucus Few (None Seen) Urine Glucose Normal mg/dL (Normal) Urine Opiates Screen Neg (NEGATIVE) Urine Fentanyl Screen Neg (NEGATIVE) Urine Barbiturates Screen Neg (NEGATIVE) Urine Phencyclidine Screen Neg (NEGATIVE) Urine Amphetamines Screen Neg (NEGATIVE) Urine Benzodiazepines Screen Neg (NEGATIVE) Urine Cocaine Screen Neg (NEGATIVE) Urine Cannabinoids Screen Neg (NEGATIVE) Other Laboratory Tests 10/24/24 07:30 Brief Hx & Hospital Course: no complications Condition at Discharge: Good Final Diagnosis/Problems List Stable Discharge Disposition: Home Discharge Instruct/Medications Diet: Regular Activity: Light activity Activity comment: Pelvic rest 8 weeks Follow Up/Referral: primary OB 2 weeks or prn fever severe pain decreaced LOC , severe bleeding. Discharge Statement: "Patient was advised to return to the ER or call 911 if any headaches, dizziness, shortness of breath, chest pain, abdominal pain, bleeding, fevers, or worsening of medical condition. Patient was counseled about treatment plan, medications, possible side effects, patientverbalized understanding. All questions were answered to the best of my ability. This discharge took greater then 30 minutes in planning, reviewing documentation, counseling the patient, and discussing with other team members." ASSESSMENT ASSESSMENT Assessment Stable Visit Coding OBGYN Date of Service: October 25, 2024 Billing Provider: ADAM SANCHEZ DO [employer] Common Visit Codes: 22448-AUN/OBS SAME DATE (LOW), 77382-IYT/OBS SAME DATE (MOD), 17797-IIN/OBS SAME DATE (HIGH) [employer] Procedure Codes: 28621-FEP DEL INCLUDING ADAM SANCHEZ DO October 25, 2024 17:24
== END 2024-10-25 16:37 | disposition home or self-care (01) | DRG 560 ==
LOC: LDRP 07:00
PROVIDERS: ADMIT Obstetrics & Gynecology; ATTEND Obstetrics & Gynecology
PROC: 10E0XZZ Delivery of Products of Conception, External Approach (ICD-10-PCS; principal; 2024-10-24)
PROC: 0HQ9XZZ Repair Perineum Skin, External Approach (ICD-10-PCS; 2024-10-24)
PROC: 3E0R3BZ Introduction of Anesthetic Agent into Spinal Canal, Percutaneous Approach (ICD-10-PCS; 2024-10-24)
PROC: 00HU33Z Insertion of Infusion Device into Spinal Canal, Percutaneous Approach (ICD-10-PCS; 2024-10-24)
PROC: 3E033VJ Introduction of Other Hormone into Peripheral Vein, Percutaneous Approach (ICD-10-PCS; 2024-10-24)
PROC: 3E0DXGC Introduction of Other Therapeutic Substance into Mouth and Pharynx, External Approach (ICD-10-PCS; 2024-10-24)
DX: O70.0 First degree perineal laceration during delivery (principal); Z37.0 Single live birth; Z3A.39 39 weeks gestation of pregnancy
CPT/HCPCS: 36415; 59025; 59409; 62282; 80053; 80307; 81001; 81002; 82962; 85025; 85610; 85730; 86765; 86780; 86803; 86850; 86900; 86901; 87340; 94760; 94762; 96360; 96361; 96365; 96366; G0378; J2590